=== PATIENT | female | born 1960 | race Caucasian/White ===

== ENCOUNTER → 2017-04-19 | Outpatient (CLI) | payer OTHER ==
[~2017-04-19] MED LIST: AMBIEN5 MG PO; CARDIZEM CD240 MG PO; CITALOPRAM HBR20 MG PO; CITALOPRAM HBR40 MG PO; COLACE100 MG PO; DAILY MULTIPLE1 EACH PO; ENDOCET 5-3251 EACH PO; LEVOTHYROXINE125 MCG PO; LIDOCAINE 4% K1 EACH TP; LYRICA75 MG PO; MEDI-LAXX TABL1 EACH PO; MELATONIN5 M1 PO; MOTRIN800 MG PO; NITROFURANTOIN100 MG PO; NORCO 5/3251 TABLET PO; PERCOCET 5/31 TABLET PO; TYLENOL EXTRA500 MG PO; VITAMIN B-12250 MCG PO
== END | disposition home or self-care (01) ==
LOC: CDC 09:40
DX: Z01.810 Encounter for preprocedural cardiovascular examination (principal); R94.31 Abnormal electrocardiogram [ECG] [EKG]
CPT/HCPCS: 93000

== ENCOUNTER 2017-04-26 05:28 | Day surgery (SDC) | payer OTHER ==
[~2017-04-26] VITALS: Ht 157.5 cm; Wt 91.5 kg
[~2017-04-26 05:28] MED LIST changes: -COLACE100 MG PO; -LIDOCAINE 4% K1 EACH TP
[2017-04-26 05:49] VITALS: BP 129/87
[2017-04-26] MEDS ORDERED: PERCOCET 5/31 TABLET PO (08:49)
[2017-04-26] MEDS ORDERED: LIDOCAINE 4% K1 EACH TP (08:49)
[2017-04-26] MEDS ORDERED: COLACE100 MG PO (08:49)
[2017-04-26 10:00] VITALS: BP 157/84
[2017-04-26 10:53] VITALS: BP 139/80
== END 2017-04-26 11:20 | disposition home or self-care (01) ==
LOC: SDC 05:28
PROC: 06BY0ZC Excision of Hemorrhoidal Plexus, Open Approach (ICD-10-PCS; principal; 2017-04-26)
DX: K64.8 Other hemorrhoids (principal); K64.4 Residual hemorrhoidal skin tags; E03.9 Hypothyroidism, unspecified; M79.7 Fibromyalgia; F41.9 Anxiety disorder, unspecified; Z90.49 Acquired absence of other specified parts of digestive tract; Z90.710 Acquired absence of both cervix and uterus; Z98.51 Tubal ligation status; Z82.49 Family history of ischemic heart disease and other diseases of the circulatory system; Z80.3 Family history of malignant neoplasm of breast; Z83.3 Family history of diabetes mellitus; Z88.5 Allergy status to narcotic agent; Z88.0 Allergy status to penicillin; Z88.8 Allergy status to other drugs, medicaments and biological substances
CPT/HCPCS: 88304; J0330; J2175; J2250; J3010